=== PATIENT | male | born 1975 ===

== ENCOUNTER 2020-07-24 05:27 | Day surgery (SDC) | payer BC ==
[2020-07-17 11:45] LABS: BASOPHILS # (AUTO) 0.1 X10'3 (0-0.2); BASOPHILS % (AUTO) 0.6 % (0-1); EOSINOPHILS # (AUTO) 0.4 X10'3 (0-0.9); EOSINOPHILS % (AUTO) 3.8 % (0-6); LYMPHOCYTES # (AUTO) 3.2 X10'3 (1.1-4.8); MEAN CORPUSCULAR HEMOGLOBIN 30.6 PG (27.0-31.0); MEAN PLATELET VOLUME 10.2 FL (7.4-10.4); MONOCYTES # (AUTO) 0.7 X10'3 (0-0.9); MONOCYTES % (AUTO) 7.7 % (2-12); NEUTROPHILS # (AUTO) 4.9 X10'3 (1.8-7.7); NEUTROPHILS % (AUTO) 52.9 % (42-75); PRE OP HEMATOCRIT 51.9 % (42.0-52.0); PRE OP HEMOGLOBIN 17.6 g/dL (14.0-17.9); PRE OP PLATELET COUNT 230 X10'3 (140-440); RED BLOOD COUNT 5.77 X10'6 (4.70-6.10); RED CELL DISTRIBUTION WIDTH 13.5 % (11.5-14.5)
[2020-07-17 12:00] LABS: ALBUMIN 4.1 G/DL (3.4-5.0); ALBUMIN/GLOBULIN RATIO 1.3 (1.1-1.5); ALKALINE PHOSPHATASE 79 IU/L (46-116); BLOOD UREA NITROGEN 14 MG/DL (7-18); BUN/CREATININE RATIO 12.6 (5.4-32.0); CALCIUM 9.1 MG/DL (8.5-10.1); CHLORIDE 106 MMOL/L (99-107); CREATININE 1.11 MG/DL (0.60-1.10); PRE OP ALT 59 U/L (30-65); PRE OP ANION GAP 3 (8-16); PRE OP AST 26 U/L (10-37); PRE OP BILIRUB, TOTAL 1.5 MG/DL (0.0-1.0); PRE OP GLUCOSE 100 MG/DL (70-104); PRE OP POTASSIUM 4.1 MMOL/L (3.4-5.1); PRE OP SODIUM 142 MMOL/L (135-145); TOTAL CARBON DIOXIDE 32.7 MMOL/L (24-32); TOTAL PROTEIN 7.2 G/DL (6.4-8.2); eGFR 71 ML/MIN
[~2020-07-24] VITALS: Ht 182.9 cm; Wt 120.0 kg
[2020-07-24] VITALS (15 sets, daily range): BP systolic 101–149; BP diastolic 51–96
[~2020-07-24 05:27] MED LIST: MULT-1085 PO; TEST200V10 IM; TRAM50TA2 PO; ringers solution, lacted 1,000 ML IV SCH
[2020-07-24] MEDS ORDERED: famotidine 20mg tablet PO ONE (05:30)
[2020-07-24] MEDS ORDERED: ceFAZolin 2gm in dextrose, iso 50 ML IV ONE (05:30)
[2020-07-24] MEDS ORDERED: BUPIVAcaine/PF 2.5 mg/ml (0.25%) 30ml vial ONE (06:38)
[2020-07-24] MEDS ORDERED: LIDOcaine 1% 30ml preserv. free vial ONE (06:38)
[2020-07-24] MEDS ORDERED: fentaNYL/PF 50MCG/1 ML 2ML syringe ONE ×2 (07:24→07:56)
[2020-07-24] MEDS ORDERED: midazolam 2 mg/2 ml injection ONE (07:25)
[2020-07-24] MEDS ORDERED: sevoflurane 250ml liquid IH ONE (07:31)
[2020-07-24] MEDS ORDERED: rocuronium 10mg/ml inj IV ONE (08:13)
[2020-07-24] MEDS ORDERED: propofol inj 20 ML IV ONE (08:13)
[2020-07-24] MEDS ORDERED: neostigmine methylsulfate 1 MG/ML 10ml vial ONE (08:13)
[2020-07-24] MEDS ORDERED: dexamethasone sod phosphate 4mg/ml inj. ONE (08:13)
[2020-07-24] MEDS ORDERED: LIDOcaine 2% (20mg/ml) 5ml vial ONE (08:13)
[2020-07-24] MEDS ORDERED: ondansetron/PF 4mg/2ml inj ONE (08:13)
[2020-07-24] MEDS ORDERED: glycopyrrolate 0.2mg/ml inj ONE (08:13)
[2020-07-24] MEDS ORDERED: ondansetron/PF 4mg/2ml inj IV PRN (08:40)
[2020-07-24] MEDS ORDERED: proCHLORperazine 10 MG/2 ml inj IV PRN (08:40)
[2020-07-24] MEDS ORDERED: morphine 2 MG/ML inj. syringe IV PRN (08:40)
[2020-07-24] MEDS ORDERED: morphine 4 MG/ML inj SYRINge IV PRN (08:40)
[2020-07-24] MEDS ORDERED: meperidine/PF 25mg/ml syringe IV PRN ×2 (08:40)
[2020-07-24] MEDS ORDERED: ringers solution, lacted 1,000 ML IV SCH (08:40)
[2020-07-24] MEDS ORDERED: acetaminophen 1,000mg/100ml IV 100 ML IV ONE (09:00)
[2020-07-24] MEDS ORDERED: ePHEDrine 50MG/ML INJ. ONE (09:00)
[2020-07-24] MEDS ORDERED: ceFAZolin 1000mg inj ONE (09:00)
--- NOTE | 2020-07-24 09:12 | NUR ---
Received from OR via TIM, accompanied by Anesthesiologist DR ABAD and report given by Anesthesiologist. PT VERY DROWSY, NO S/S OF DISTRESS/DISCOMFORT, ABDOMEN W/3 LAP SITES W/BANDAIDS CDI. Addendum: 07/24/20 at 0930 by Donna Chan RN Amended: Links added.
[2020-07-24] MEDS ORDERED: oxyCODONE/APAP 5-325mg tablet PO PRN ×2 (09:30)
[2020-07-24] MEDS: meperidine/PF 25mg/ml syringe IV PRN ×2 (10:07→10:13)
--- NOTE | 2020-07-24 14:02 | NUR ---
PT UP AND AMBULATED IN PACU FOR APPROX 1 HOUR, STABLE ON FEET, WAS ABLE TO VOID A LARGE AMOUNT, D/C INSTRUCTIONS GIVEN AND GONE OVER W/PT WHO VERBALIZED UNDERSTANDING. PT D/CD TO HOME VIA W/C TO PRIVATE VEHICLE W/O INCIDENT. Addendum: 07/24/20 at 1448 by Donna Chan RN Amended: Links added.
== END 2020-07-24 14:02 | disposition home or self-care (01) ==
LOC: PAS 05:27
PROVIDERS: ATTEND Surgery
DX: K43.6 Other and unspecified ventral hernia with obstruction, without gangrene (principal); K40.91 Unilateral inguinal hernia, without obstruction or gangrene, recurrent; Z20.828 Contact with and (suspected) exposure to other viral communicable diseases; Z79.899 Other long term (current) drug therapy; Z98.890 Other specified postprocedural states; Z72.89 Other problems related to lifestyle; E66.9 Obesity, unspecified; Z68.36 Body mass index [BMI] 36.0-36.9, adult; Z82.61 Family history of arthritis; Z83.6 Family history of other diseases of the respiratory system
CPT/HCPCS: 36415; 49561; 49568; 49651; 80053; 82948; 85025; 87635; 93005; C1781; J0131; J0690; J1100; J2001; J2175; J2250; J2405; J2704; J2710; J3010; J3490; J7120; S2900; A4215; A4618